=== PATIENT | male | born 1965 | race Caucasian/White ===

== ENCOUNTER 2019-03-28 08:10 | Day surgery (SDC) | payer MEDICARE ==
[~2019-03-28] VITALS: Ht 177.8 cm; Wt 169.7 kg
[2019-03-28 09:33] VITALS: BP 161/101
[2019-03-28] MEDS ORDERED: SODIUM CHLORIDE 0.9% 1,000 ML IV SCH (09:37)
[2019-03-28] MEDS ORDERED: FLUMAZENIL 0.1 MG/1 ML, 5ML ONE (10:29)
[2019-03-28] MEDS ORDERED: MIDAZOLAM 1 MG/ML, 5ML ONE (10:29)
[2019-03-28] MEDS ORDERED: FENTANYL PF 100 MCG/2ML ONE (10:29)
[2019-03-28] MEDS ORDERED: NALOXONE 1 MG/ML, 2ML ONE (10:30)
== END 2019-03-28 13:00 | disposition home or self-care (01) ==
LOC: OUT 08:10
PROVIDERS: ATTEND Specialist
DX: R19.07 Generalized intra-abdominal and pelvic swelling, mass and lump (principal); C78.6 Secondary malignant neoplasm of retroperitoneum and peritoneum; C19 Malignant neoplasm of rectosigmoid junction; I10 Essential (primary) hypertension; E11.9 Type 2 diabetes mellitus without complications
CPT/HCPCS: 49180; 77012; 88172; 88305; 99156; 99157; J2250; J3010; J7030; J2310